=== PATIENT | female | born 1955 | race African-American/Black ===

== ENCOUNTER 2019-11-17 15:13 | Outpatient (CLI) | payer OTHER, SELFPAY ==
--- NOTE | 2019-11-17 15:37 | ECG_ITS ---
Measurements Intervals [place] Rate: 63 P: 30 ND: 170 QRS: -7 QRSD: 109 T: 163 QT: 409 QTc: 420 Interpretive Statements SINUS RHYTHM INCOMPLETE RIGHT BUNDLE BRANCH BLOCK LEFT VENTRICULAR HYPERTROPHY AND ST-T CHANGE ST-T WAVE ABNORMALITY IN ANTEROLAT/LAT LEADS- CONSIDER ISCHEMIA BASELINE ARTIFACT- V3 ABNORMAL ECG Electronically Signed On 11-17-2019 17:24:27 CDT by Pa Niño D.O.
== END 2019-11-17 15:14 | disposition home or self-care (01) ==
PROVIDERS: PCP Internal Medicine
DX: E11.9 Type 2 diabetes mellitus without complications (principal); I10 Essential (primary) hypertension; R94.31 Abnormal electrocardiogram [ECG] [EKG]
CPT/HCPCS: 93005

== ENCOUNTER 2020-01-15 09:27 | Outpatient (CLI) | payer OTHER, SELFPAY ==
--- NOTE | ~2020-01-15 | MR_ITS ---
EXAMINATION: MR brain/brain stem wo con DATE: 01/15/2020 10:55 INDICATION: Tremor, unspecified. TECHNIQUE: Magnetic resonance imaging (MRI) of the brain and brainstem was performed without intraven ous contrast. Sequences included sagittal and axial T1-weighted FSE, axial diffusion-weighted FS EPI, axial T2*-weighted GRE, axial T2-weighted FLAIR Propeller, and axial T2-weighted Propeller. Apparent diffusion coefficient (ADC) maps were created. COMPARISON: None. FINDINGS: There is an empty sella. There are scattered areas of nonspecific increased T2-weighted sig nal intensity in the cerebral white matter, which is within normal limits for the patient's age. Ther e is no intracranial hemorrhage, acute infarction, or abnormal intracranial mass lesion. The ventricl es are normal in size. The paranasal sinuses are clear. There are likely changes of ocular lens repla cement surgeries. There is a trace right mastoid effusion. IMPRESSION: 1. Empty sella. Reviewed, dictated and finalized at location A. IMPRESSION: 1. Empty sella.
== END 2020-01-15 09:28 | disposition home or self-care (01) ==
LOC: ANHIMG 09:29
PROVIDERS: PCP Internal Medicine; Visit Provider Physician Assistant
DX: R25.1 Tremor, unspecified (principal); E23.6 Other disorders of pituitary gland
CPT/HCPCS: 70551

== ENCOUNTER 2021-05-09 17:45 | Outpatient (CLI) | payer OTHER, SELFPAY ==
--- NOTE | ~2021-05-09 | XR_ITS ---
EXAMINATION: XR hand BI arthritis min 3V DATE: 05/09/2021 18:00 INDICATION: Right hand pain. Left hand pain. TECHNIQUE: 4 views of the right hand and 4 views of the left hand on 7 radiographs were obtained. COMPARISON: None. FINDINGS: RIGHT HAND: Bone alignment is normal. No fracture. There is mild osteoarthritis of triscaphe joint, f irst carpometacarpal joint, first through fifth metacarpophalangeal joints, and most of the interphal angeal joints. LEFT HAND: Bone alignment is normal. No fracture. There is mild osteoarthritis of first carpometacarp al joint, first, second, fourth, and fifth metacarpophalangeal joints, and first interphalangeal join t. IMPRESSION: 1. Mild polyarticular osteoarthritis. Reviewed, dictated and finalized at location A.
== END 2021-05-09 17:46 ==
PROVIDERS: PCP Internal Medicine; Visit Provider Internal Medicine
DX: M79.641 Pain in right hand (principal); M79.642 Pain in left hand; M19.042 Primary osteoarthritis, left hand; M19.041 Primary osteoarthritis, right hand
CPT/HCPCS: 73130

== ENCOUNTER 2022-09-30 14:43 | Outpatient (CLI) | payer MEDICARE, SELFPAY ==
--- NOTE | 2022-10-02 07:53 | WPDPFTINT ---
PFT Procedure Performed PFT Procedure Performed Spirometry with Pre/Post Bronchodilator Plethysmography (Lung Vol) Diffusing Cap (DLCO) Flow Vol Loop PFT Interpretation Lung volumes were measured with the body plethysmography method. The diminished [id number]-eky-kqtfr lung volumes are indicative of restrictive respiratory disease. Spirometry showed diminished expiratory flow rates and a normal FEV1 to FVC ratio of 81%, also consistent with restrictive respiratory disease. Following administration of a bronchodilator there was no significant increase in expiratory flow rates. Lung diffusion capacity is mildly reduced at 62% predicted. The flow-volume loop is unremarkable. Impression: Mild restrictive respiratory disease. Mild reduction in lung diffusion capacity.
--- NOTE | 2022-10-02 07:55 | WPDSIXMINUTE ---
Six Minute Walk Procedure Procedure Performed Pulmonary Stress Test (6 min walk) Six Minute Walk Six Minute Walk: This 6 minute walk test was carried out with the patient breathing ambient air. The baseline pre-walk oxyhemoglobin saturation was 94%. The patient walked 243 m with no stops during testing. During the walk the oxyhemoglobin saturation remained in the range of 90 % to 92%. Impression: No evidence of oxyhemoglobin desaturation on this testing.
== END 2022-09-30 14:44 | disposition home or self-care (01) ==
LOC: ANHPFT 14:45
PROVIDERS: PCP Internal Medicine; Visit Provider Nurse Practitioner Family
DX: R06.09 Other forms of dyspnea (principal); R94.2 Abnormal results of pulmonary function studies
CPT/HCPCS: 94060; 94618; 94726; 94729

== ENCOUNTER 2023-11-23 10:19 | Outpatient (CLI) | payer MEDICARE, SELFPAY ==
[2023-11-23 12:40] LABS: Basophils Percent Auto 0.3 % (0.2-1.2); Eosinophils Absolute Auto 0.1 K/mm3 (0-0.3); Hematocrit 45.3 % (37.0-47.0); Hemoglobin 13.3 g/dL (12.0-15.0); Immature Granulocyte Absolute 0.01 K/mm3 (0.00-0.031); Immature Granulocyte Percent A 0.2 % (0-0.5); Lymphocytes Absolute Auto 2.43 K/mm3 (0.9-3.2); Lymphocytes Percent Auto 39.6 % (18.3-44.2); Mean Corpuscular HGB Conc 29.4 g/dl (32-36); Mean Corpuscular Hemoglobin 24.6 pg (26-34); Mean Corpuscular Volume 83.7 fl (80-100); Mean Platelet Volume 10.4 fl (7.4-10.4); Monocytes Absolute Auto 0.5 K/mm3 (0.1-0.6); Monocytes Percent Auto 7.8 % (2.6-8.5); Neutrophils Absolute Auto 3.1 K/mm3 (1.3-6.7); Neutrophils Percent Auto 51.1 % (45.5-73.1); Platelet Count Result 229 k/mm3 (150-375); Red Blood Count 5.41 M/mm3 (4.2-5.4); Red Cell Distribution Width 17.7 % (11.5-14.5); White Blood Count 6.1 K/mm3 (4.5-10.0)
[2023-11-23 13:07] LABS: Creatinine Urine 144.8 mg/dL
[2023-11-23 13:07] LABS: Vitamin D 25 Hydroxy 91.4 ng/mL
[2023-11-23 13:12] LABS: MALB Creatinine Ratio 4.7 mg/g (0-30); Microalbumin Urine Random 6.8 mg/L (0-16.7)
[2023-11-23 13:48] LABS: Hypochromasia 1+; Platelet Estimate Adequate (Adequate)
[2023-11-23 13:49] LABS: Anisocytosis 1+; Microcytosis 1+ (NORMAL); Schistocytes None Seen
[2023-11-23 14:42] LABS: Alanine Aminotransferase 15 U/L (6-35); Albumin Level 4.7 g/dL (3.5-5.1); Alkaline Phosphatase 89 U/L (38-126); Anion Gap 9 mmol/L (8-16); Aspartate Amino Transferase 41 U/L (14-36); Bilirubin,Total 0.7 mg/dL (0.2-1.3); Blood Urea Nitrogen 24 mg/dL (7-17); Calcium 9.9 mg/dL (8.4-10.2); Carbon Dioxide 28 mmol/L (22-30); Chloride 103 mmol/L (98-107); Cholesterol 155 mg/dL (0-200); Estimated Glomerular Filt Rate 42; Glucose 106 mg/dL (65-110); HDL Direct 42 mg/dL; Potassium 4.3 mmol/L (3.4-5.0); Sodium 140 mmol/L (137-145); Triglycerides 153 mg/dL (<150)
[2023-11-23 14:52] LABS: LDL Cholesterol Direct 84 mg/dL
[2023-11-23 15:49] LABS: Folic Acid > 20.0 ng/mL (2.76->20)
== END 2023-11-23 10:20 | disposition home or self-care (01) ==
LOC: ANHWCLAB 10:20
PROVIDERS: PCP Physician Assistant; Visit Provider Nurse Practitioner Family
DX: E55.9 Vitamin D deficiency, unspecified (principal); R53.83 Other fatigue; E11.9 Type 2 diabetes mellitus without complications; I25.10 Atherosclerotic heart disease of native coronary artery without angina pectoris; G47.33 Obstructive sleep apnea (adult) (pediatric); Z98.890 Other specified postprocedural states; Z87.442 Personal history of urinary calculi
CPT/HCPCS: 36415; 80053; 80061; 82043; 82306; 82607; 82746; 84443; 85025

== ENCOUNTER 2023-11-23 13:33 | Outpatient (CLI) | payer MEDICARE, SELFPAY ==
--- NOTE | 2023-11-23 14:30 | NEURO_ITS ---
Impression: # Known diabetic complains of numbness of left hand. 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 # Clinical correlation recommended. Nerve Conduction Studies Anti Sensory Summary Table Stim Site NR Peak (ms) P-T Amp (?V) Site1 Site2 Delta-P (ms) Dist (cm) [place] (m/s) Left Median Anti Sensory (2-3nd Digit) Wrist 3.1 41.3 Wrist 2-3nd Digit 3.1 14.0 45 Wrist 3.1 42.9 Wrist 2-3nd Digit 3.1 14.0 45 Right Median Anti Sensory (2-3nd Digit) Wrist 2.7 31.2 Wrist 2-3nd Digit 2.7 14.0 52 Wrist 2.7 24.4 Wrist 2-3nd Digit 2.7 14.0 52 Left Radial Anti Sensory (Base 1st Digit) Wrist 2.0 43.5 Wrist Base 1st Digit 2.0 0.0 Right Radial Anti Sensory (Base 1st Digit) Wrist 2.7 17.9 Wrist Base 1st Digit 2.7 0.0 Left Ulnar Anti Sensory (5th Digit) Wrist 2.4 23.9 Wrist 5th Digit 2.4 14.0 58 Right Ulnar Anti Sensory (5th Digit) Wrist 2.3 26.3 Wrist 5th Digit 2.3 14.0 61 Motor Summary Table Stim Site NR Onset (ms) O-P Amp (mV) Site1 Site2 Delta-0 (ms) Dist (cm) [place] (m/s) Left Median Motor (Abd Poll Brev) Wrist 3.7 5.6 Elbow Wrist 4.5 30.0 67 Elbow 8.2 4.7 Right Median Motor (Abd Poll Brev) Wrist 3.1 7.8 Elbow Wrist 5.1 31.0 61 Elbow 8.2 6.2 Left Ulnar Motor (Abd Dig Minimi) Wrist 2.7 7.1 A Elbow Wrist 6.1 30.0 49 A Elbow 8.8 5.5 B Elbow Wrist 4.4 24.0 55 B Elbow 7.1 5.1 Right Ulnar Motor (Abd Dig Minimi) Wrist 2.5 3.1 A Elbow Wrist 5.8 31.0 53 A Elbow 8.3 3.0 B Elbow Wrist 3.8 22.0 58 B Elbow 6.3 5.6 F Wave Studies NR F-Lat (ms) L-R F-Lat (ms) Left Median (Mrkrs) (Abd Poll Brev) 26.83 0.64 Right Median (Mrkrs) (Abd Poll Brev) 27.47 0.64 Left Ulnar (Mrkrs) (Abd Dig Min) 27.03 1.84 Right Ulnar (Mrkrs) (Abd Dig Min) 28.86 1.84 EMG Side Muscle Nerve Root Ins Act Fibs Amp Dur Recrt Comment Right 1stDorInt Ulnar C8-T1 Nml Nml Nml Nml Nml Right Ext Indicis Radial (Post Int) C7-8 Nml Nml Nml Nml Nml Right Ext Digitorum Radial (Post Int) C7-8 Nml Nml Nml Nml Nml Right BrachioRad Radial C5-6 Nml Nml Nml Nml Nml Right PronatorTeres Median C6-7 Nml Nml Nml Nml Nml Right Abd Poll Brev Median C8-T1 Nml Nml Nml Nml Nml Right ABD Dig Min Ulnar C8-T1 Nml Nml Nml Nml Nml Left 1stDorInt Ulnar C8-T1 Nml Nml Nml Nml Nml Left Ext Indicis Radial (Post Int) C7-8 Nml Nml Nml Nml Nml Left Ext Digitorum Radial (Post Int) C7-8 Nml Nml Nml Nml Nml Left BrachioRad Radial C5-6 Nml Nml Nml Nml Nml Left PronatorTeres Median C6-7 Nml Nml Nml Nml Nml Left Abd Poll Brev Median C8-T1 Nml Nml Nml Nml Nml Left ABD Dig Min Ulnar C8-T1 Nml Nml Nml Nml Nml MTDD
== END 2023-11-23 13:34 | disposition home or self-care (01) ==
PROVIDERS: PCP Physician Assistant; Visit Provider Physician Assistant
DX: G56.22 Lesion of ulnar nerve, left upper limb (principal); E11.9 Type 2 diabetes mellitus without complications; E55.9 Vitamin D deficiency, unspecified
CPT/HCPCS: 36415; 80053; 80061; 82043; 82306; 82607; 82746; 84443; 85025; 95886; 95911